=== PATIENT | female | born 1995 | race Two or more races ===

== ENCOUNTER → 2020-08-15 | Outpatient (CLI) | payer OTHER | END | disposition home or self-care (01) | LOC: RAD 12:33 | DX: R10.11 Right upper quadrant pain (principal); R11.0 Nausea; R10.2 Pelvic and perineal pain | CPT/HCPCS: 76700 ==

== ENCOUNTER 2020-08-19 10:11 | Outpatient (CLI) | payer OTHER | END 2020-08-19 23:59 | disposition home or self-care (01) | LOC: RAD 10:11 | DX: O26.891 Other specified pregnancy related conditions, first trimester (principal); O21.9 Vomiting of pregnancy, unspecified; R10.11 Right upper quadrant pain; R10.2 Pelvic and perineal pain; Z3A.08 8 weeks gestation of pregnancy | CPT/HCPCS: 76801 ==